=== PATIENT | female | born 1980 | race Two or more races ===

== ENCOUNTER → 2020-03-21 | Emergency (ER) | payer MEDICAID, OTHER ==
[~2020-03-21] VITALS: Ht 160 cm; Wt 59.0 kg
[2020-03-21 16:21] LABS: Urine Bacteria FEW /hpf (None Seen); Urine Blood 2+ /uL (Negative); Urine Mucus FEW (None Seen); Urine Specific Gravity 1.004 (1.001-1.035); Urine WBC 17 /hpf (0 - 5)
[2020-03-21 20:23] VITALS: BP 120/69
== END | disposition home or self-care (01) ==
LOC: ER 14:56
DX: O20.0 Threatened abortion (principal)
CPT/HCPCS: 36415; 76801; 76817; 81001; 81025; 84702

== ENCOUNTER 2020-07-09 02:41 | Emergency (ER) | payer MEDICAID ==
[~2020-07-09] VITALS: Ht 160 cm; Wt 62.6 kg
[2020-07-09 03:48] LABS: Basophils # (auto) 0.1 10 ^3/uL (0-0.2); Mean Corpuscular Volume 78.3 fL (80.0-100.0); Monocytes # (auto) 0.5 10 ^3/uL (0-1.3); Red Cell Distribution Width 18.6 % (11.8-14.3)
[2020-07-09 03:50] LABS: Eosinophils # (auto) 0.2 10 ^3/uL (0-0.8); Eosinophils % (auto) 4.1 % (0.0-7.0); Hematocrit 36.6 % (36.0-46.0); Hemoglobin 11.7 g/dL (12.2-16.2); Lymphocytes # (auto) 1.7 10 ^3/uL (0.4-5.4); Lymphocytes % (auto) 28.1 % (10.0-50.0); Monocytes % (auto) 7.8 % (0.0-12.0); Neutrophils # (auto) 3.5 10 ^3/uL (1.6-8.6); Nucleated Red Blood Cells % 0.1 %; Platelet Count (auto) 393 10^3/uL (140-450); Red Blood Cells 4.67 10^6/uL (4.0-5.20)
[2020-07-09 04:07] LABS: Anion Gap 9 (5-15); Blood Urea Nitrogen 9 mg/dL (7-18); Calcium 8.8 mg/dL (8.5-10.1); Carbon Dioxide 19 mmol/L (21-32); Chloride 109 mmol/L (98-107); Glucose 93 mg/dL (74-106); Potassium 3.7 mmol/L (3.5-5.1); Sodium 137 mmol/L (136-145)
[2020-07-09 04:12] LABS: Alanine Aminotransferase 24 U/L (13-56); Alkaline Phosphatase 104 U/L (45-117); Aspartate Aminotransferase 29 U/L (15-37); BUN/Creatinine Ratio 11.8; Bilirubin, Total 0.5 mg/dL (0.2-1.0); GFR African American 110 mL/min; GFR Non-African American 91 mL/min; Total Protein 8.3 g/dL (6.4-8.2)
[2020-07-09] MEDS ORDERED: LORazepam 0.5 MG TAB PO ONE (05:45)
[2020-07-09 06:00] VITALS: BP 127/86
== END 2020-07-09 07:34 | disposition home or self-care (01) ==
LOC: ER 02:41
DX: S16.1XXA Strain of muscle, fascia and tendon at neck level, initial encounter (principal); J45.909 Unspecified asthma, uncomplicated; R42 Dizziness and giddiness; R06.02 Shortness of breath; X58.XXXA Exposure to other specified factors, initial encounter; Y93.89 Activity, other specified; Y92.89 Other specified places as the place of occurrence of the external cause; Y99.8 Other external cause status
CPT/HCPCS: 36415; 70450; 80053; 83880; 84484; 85025; 93005